=== PATIENT | male | born 1995 | race Hispanic/Latino ===

== ENCOUNTER 2018-04-15 14:43 | Emergency (ER) | payer OTHER ==
[2018-04-15] MEDS ORDERED: LIDOCAINE HCL-MPF 1% 2ML VIAL ONE (15:08)
[2018-04-15] MEDS ORDERED: CEFTRIAXONE SODIUM 1 GM ONE (15:08)
== END 2018-04-15 15:26 | disposition home or self-care (01) ==
LOC: EDH 14:43
DX: J02.0 Streptococcal pharyngitis (principal)
CPT/HCPCS: 96372; 99283; J0696; J3490